=== PATIENT | male | born 1995 | race Caucasian/White ===

== ENCOUNTER 2017-12-26 20:36 | Emergency (ER) | payer BC ==
[~2017-12-26] VITALS: Ht 175.3 cm; Wt 88.9 kg
[2017-12-26 21:23] VITALS: TEMP 36.8; Ht 175.3 cm; Wt 88.9 kg
--- NOTE | 2017-12-26 21:43 | DIAGNOSTIC IMAGING REPORT ---
R WRIST MIN 3 VIEWS ROUTINE CLINICAL HISTORY: Right wrist pain COMPARISON: None. DISCUSSION: No acute fractures or dislocations are visualized. There are no erosive changes. IMPRESSION: No acute fractures or dislocations identified. Electronically signed by: Mark Quevedo M.D. 12/26/2017 9:41 PM Dictated Date/Time: 12/26/2017 9:41 PM
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
[2017-12-26 23:16] VITALS: BP 115/76; PULSE 76; O2SAT 98
== END 2017-12-26 23:27 | disposition home or self-care (01) ==
LOC: C.EDB 20:37 → C.EDD 23:27
DX: M25.531 Pain in right wrist (principal); M79.641 Pain in right hand